=== PATIENT | female | born 1945 | race African-American/Black ===

== ENCOUNTER 2022-04-04 09:32 | Outpatient (CLI) | payer MEDICARE ==
[2022-04-04 10:49] LABS: Blood Urea Nitrogen 10 mg/dL (7-17)
--- NOTE | 2022-04-05 08:41 | Magnetic Resonance Report ---
MRI ABDOMEN WITHOUT AND WITH CONTRAST MRI PELVIS WITH AND WITHOUT CONTRAST INDICATION / CLINICAL INFORMATION: ABNORMAL PELVIC U/S RIGHT OVARIAN CYST N83.291 R93.5 R10.30. TECHNIQUE: Multiplanar, multisequence series were obtained through the abdomen. COMPARISON: None available at this facility FINDINGS: LIVER: No significant abnormality. 1 cm cyst in the right hepatic lobe is noted. GALLBLADDER: No significant abnormality. BILE DUCTS: No significant abnormality. PANCREAS: No significant abnormality. SPLEEN: No significant abnormality. ADRENALS: No significant abnormality. RIGHT KIDNEY AND URETER: No significant abnormality. LEFT KIDNEY AND URETER: No significant abnormality. STOMACH AND VISUALIZED BOWEL: No significant abnormality. PERITONEUM: No free fluid. No free air. No fluid collection. LYMPH NODES: No significant adenopathy. AORTA and ARTERIES: No significant abnormality. IVC and VEINS: No significant abnormality. UTERUS: The uterus is anteverted and normal size measuring 6 cm in length. There is no evidence for u terine fibroid disease. The endometrial stripe is unremarkable measuring 3 mm in thickness. The junct ional zone is unremarkable. CERVIX: The cervical tissue appears unremarkable. No evidence for enhancing mass. There is a mild deg ree of thickening/intermediate density fluid signal within the cervical canal. This does not enhance. This may represent fluid with proteinaceous debris or blood products. OVARIES: Both ovaries are unremarkable. There is no evidence for ovarian cyst or mass on today's exam . SKELETAL SYSTEM: No significant abnormality. IMPRESSION: Unremarkable MRI of the abdomen with and without contrast. Essentially unremarkable MRI of the pelvis with and without contrast. No right ovarian cyst is identi fied. There appears to be a mild degree of fluid in the endocervical canal but no evidence for enhanc ing cervical mass. Signer Name: Marin Pedersen Jr, MD Signed: 04/05/2022 8:36 AM Workstation Name: [id number]
== END 2022-04-04 09:33 | disposition home or self-care (01) ==
LOC: MRI 09:32
PROVIDERS: ATTEND Nurse Practitioner Family
DX: R93.5 Abnormal findings on diagnostic imaging of other abdominal regions, including retroperitoneum (principal); R10.30 Lower abdominal pain, unspecified; N83.291 Other ovarian cyst, right side
CPT/HCPCS: 36415; 72197; 74183; 82565; 84520; A9575